=== PATIENT | male | born 1935 | race Caucasian/White ===

== ENCOUNTER 2016-09-29 13:23 | Inpatient (IN) | payer MEDICARE, OTHER ==
[~2016-09-29] VITALS: Ht 177.8 cm; Wt 113.3 kg
[~2016-09-29 13:23] MED LIST: ASPI325T4 PO; ATOR10TA PO; DUTA0.5C PO; DuoNeb INH; ESOM40CA PO; FURO20TA3 PO; LEVO500T33 PO; METO25TA35 PO; PRIM50TA PO; TADA5TAB2 PO
[2016-09-29 14:11] VITALS: BP 124/86
[2016-09-29] MEDS ORDERED: ONDANSETRON 2MG/ML, 2ML IV PRN (14:30)
[2016-09-29] MEDS ORDERED: ACETAMINOPHEN 650 MG/20.3 ML UDC PO PRN (14:30)
[2016-09-29] MEDS ORDERED: BISACODYL 5 MG EC TABLET PO PRN (14:30)
[2016-09-29] MEDS ORDERED: DIGOXIN 0.25 MG/ML, 2ML IV ONE (14:30)
[2016-09-29] MEDS: PLEASE ENTER HEIGHT AND WEIGHT MC SCH ×2 (15:00→23:00)
[2016-09-29] MEDS: METOPROLOL TARTRATE 25 MG TABLET PO SCH ×2 (15:35→22:59)
[2016-09-29 15:44] LABS: BLOOD UREA NITROGEN 14 mg/dL (7-18)
[2016-09-29] MEDS ORDERED: SODIUM CHLORIDE 0.9% 1,000 ML IV SCH (16:30)
[2016-09-29] MEDS ORDERED: OMNIPAQUE 350 MG/ML, 100ML BOTTLE ONE (17:14)
[2016-09-29] MEDS: SOTALOL 80MG TABLET PO SCH (18:16)
[2016-09-29] MEDS: ATORVASTATIN 10 MG TABLET PO SCH (20:04)
[2016-09-29] MEDS: APIXABAN 5 MG TABLET PO SCH (20:04)
[2016-09-29 20:05] VITALS: BP 114/73
[2016-09-29] MEDS: SODIUM CHLORIDE FLUSH 10ML SYR IVF SCH (20:05)
[2016-09-29] MEDS: PRIMIDONE 50 MG TABLET PO SCH (20:05)
[2016-09-29] MEDS: SULFAMETH./TRIMETHOPRIM DS 800MG/160MG TABLET PO SCH (20:05)
[2016-09-29] MEDS: ZOLPIDEM 5MG TABLET PO PRN (21:21)
[2016-09-30 02:15] VITALS: BP 110/72
[2016-09-30] MEDS: SOTALOL 80MG TABLET PO SCH ×2 (05:45→18:14)
[2016-09-30] MEDS: METOPROLOL TARTRATE 25 MG TABLET PO SCH ×3 (05:45→21:12)
[2016-09-30 05:55] LABS: BLOOD UREA NITROGEN 13 mg/dL (7-18)
[2016-09-30] MEDS: PLEASE ENTER HEIGHT AND WEIGHT MC SCH ×3 (07:00→23:00)
[2016-09-30 07:37] VITALS: BP 129/78
[2016-09-30] MEDS: PRIMIDONE 50 MG TABLET PO SCH ×2 (08:17→21:14)
[2016-09-30] MEDS: APIXABAN 5 MG TABLET PO SCH ×2 (08:18→21:14)
[2016-09-30] MEDS: OMEPRAZOLE 20 MG CAPSULE.DR PO SCH (08:18)
[2016-09-30] MEDS: SULFAMETH./TRIMETHOPRIM DS 800MG/160MG TABLET PO SCH ×2 (08:18→21:12)
[2016-09-30] MEDS: DUTASTERIDE 0.5 MG CAPSULE PO SCH (08:19)
[2016-09-30] MEDS: SODIUM CHLORIDE FLUSH 10ML SYR IVF SCH ×2 (08:19→21:15)
[2016-09-30] MEDS ORDERED: SODIUM CHLORIDE 0.9% 1,000 ML IV SCH (11:00)
[2016-09-30 15:53] VITALS: BP 110/65
[2016-09-30] MEDS ORDERED: ACETAMINOPHEN 325 MG TABLET ONE (18:28)
[2016-09-30 19:55] VITALS: BP 112/71
[2016-09-30] MEDS: ZOLPIDEM 5MG TABLET PO PRN (21:14)
[2016-09-30] MEDS: ATORVASTATIN 10 MG TABLET PO SCH (21:14)
[2016-10-01 02:44] VITALS: BP 117/62
[2016-10-01 04:29] VITALS: BP 128/78
[2016-10-01 05:28] VITALS: BP 127/73
[2016-10-01 05:32] LABS: BLOOD UREA NITROGEN 14 mg/dL (7-18)
[2016-10-01 07:41] VITALS: BP 135/77
[2016-10-01] MEDS: APIXABAN 5 MG TABLET PO SCH (09:13)
[2016-10-01] MEDS: OMEPRAZOLE 20 MG CAPSULE.DR PO SCH (09:14)
[2016-10-01] MEDS: SOTALOL 80MG TABLET PO SCH (09:14)
[2016-10-01] MEDS: DUTASTERIDE 0.5 MG CAPSULE PO SCH (09:15)
[2016-10-01] MEDS: METOPROLOL TARTRATE 25 MG TABLET PO SCH (09:15)
[2016-10-01] MEDS: SULFAMETH./TRIMETHOPRIM DS 800MG/160MG TABLET PO SCH (09:15)
[2016-10-01] MEDS: PRIMIDONE 50 MG TABLET PO SCH (09:15)
[2016-10-01] MEDS: PLEASE ENTER HEIGHT AND WEIGHT MC SCH (09:17)
[2016-10-01] MEDS: SODIUM CHLORIDE FLUSH 10ML SYR IVF SCH (09:17)
[2016-10-01 09:20] VITALS: BP 144/77
[2016-10-01] MEDS ORDERED: APIX5TAB PO (12:18)
[2016-10-01] MEDS ORDERED: SOTA80TA18 PO (12:18)
[2016-10-01] MEDS ORDERED: SULF1TAB3 PO (12:18)
== END 2016-10-01 13:05 | disposition home or self-care (01) | DRG 308 ==
LOC: 5SO 13:48
PROVIDERS: ADMIT Internal Medicine Cardiovascular Disease; ATTEND Internal Medicine Cardiovascular Disease
PROC: B246ZZ4 Ultrasonography of Right and Left Heart, Transesophageal (ICD-10-PCS; principal; 2016-09-29)
DX: I48.0 Paroxysmal atrial fibrillation (principal); I50.31 Acute diastolic (congestive) heart failure; D68.59 Other primary thrombophilia; N39.0 Urinary tract infection, site not specified; I48.92 Unspecified atrial flutter; D64.9 Anemia, unspecified; E66.9 Obesity, unspecified; E78.5 Hyperlipidemia, unspecified; E87.5 Hyperkalemia; I25.10 Atherosclerotic heart disease of native coronary artery without angina pectoris; I27.2 Other secondary pulmonary hypertension; J44.9 Chronic obstructive pulmonary disease, unspecified; K21.9 Gastro-esophageal reflux disease without esophagitis; N40.0 Benign prostatic hyperplasia without lower urinary tract symptoms; Z79.899 Other long term (current) drug therapy; Z87.891 Personal history of nicotine dependence; Z95.1 Presence of aortocoronary bypass graft; Z95.2 Presence of prosthetic heart valve; Z68.35 Body mass index [BMI] 35.0-35.9, adult; I11.0 Hypertensive heart disease with heart failure
CPT/HCPCS: 36415; 71020; 71275; 80048; 83735; 84439; 84443; 85014; 85018; 93005; 93306; 93312; Q9967; J1160; J7030

== ENCOUNTER 2016-11-24 23:19 | Emergency (ER) | payer MEDICARE, OTHER ==
[~2016-11-24 23:19] MED LIST changes: +APIX5TAB PO; +SOTA80TA18 PO; +SULF1TAB3 PO
[2016-11-25 00:09] LABS: HEMATOCRIT 45.3 % (39.2-51.8); HEMOGLOBIN 15.2 g/dL (13.7-18.0); WHITE BLOOD COUNT 9.1 x10^3/uL (3.4-10)
[2016-11-25 00:21] LABS: ASPARTATE AMINO TRANSFERASE 21 U/L (15-37); BLOOD UREA NITROGEN 15 mg/dL (7-18)
[2016-11-25 00:35] LABS: IS PT STATUS REG ER OR PRE ER? YES
[2016-11-25 01:18] VITALS: BP 124/65
== END 2016-11-25 01:21 | disposition home or self-care (01) ==
LOC: ED 23:59
DX: I48.2 Chronic atrial fibrillation (principal)
CPT/HCPCS: 36415; 71020; 80053; 83735; 83880; 84439; 84443; 84484; 85025; 85610; 85730; 93005; 99285

== ENCOUNTER → 2017-07-08 | Outpatient (CLI) | payer MEDICARE, OTHER ==
[~2017-07-08] MED LIST changes: +ASPI325T17 PO; -ASPI325T4 PO; -LEVO500T33 PO; +LEVO500T47 PO; +OMNIPAQUE 350 MG/ML, 100ML BOTTLE ONE; +SULF-169 PO; -SULF1TAB3 PO
== END | disposition home or self-care (01) ==
LOC: CFH 12:32
PROVIDERS: ATTEND Internal Medicine Cardiovascular Disease
DX: J32.0 Chronic maxillary sinusitis (principal); J32.2 Chronic ethmoidal sinusitis
CPT/HCPCS: 70470; Q9967

== ENCOUNTER 2017-08-27 12:34 | Emergency (ER) | payer MEDICARE, OTHER ==
[~2017-08-27 12:34] MED LIST changes: -OMNIPAQUE 350 MG/ML, 100ML BOTTLE ONE
[2017-08-27] MEDS ORDERED: CIPR500T87 PO (12:55)
[2017-08-27] MEDS ORDERED: TERA2CAP3 PO (12:55)
[2017-08-27] MEDS ORDERED: METR500T PO (12:55)
[2017-08-27] MEDS ORDERED: SODIUM CHLORIDE FLUSH 10ML SYR IVF ONE (13:00)
[2017-08-27 13:08] LABS: MEAN CORPUSCULAR HEMOGLOBIN 32.3 pg (27.5-34.5); MEAN CORPUSCULAR HGB CONC 33.9 g/dL (33.2-36.2); MEAN CORPUSCULAR VOLUME 95.3 fL (81-97); MEAN PLATELET VOLUME 7.4 fL (7.4-10.4); PLATELET COUNT 288 x10^3/uL (130-400); RED BLOOD COUNT 4.63 x10^6/uL (4.38-5.82); RED CELL DISTRIBUTION WIDTH 13.5 % (9.4-14.8)
[2017-08-27 13:16] LABS: INTERNATIONAL NORMALIZED RATIO 1.18 (0.93-1.1); PROTHROMBIN TIME 12.2 Seconds (9.6-11.5)
[2017-08-27 13:20] LABS: ALANINE AMINOTRANSFERASE 28 U/L (12-78); ANION GAP 8 mmol/L (5-15); CALCIUM 8.9 mg/dL (8.5-10.1); CHLORIDE 107 mmol/L (98-107); CREATININE 1.28 mg/dL (0.7-1.3)
[2017-08-27 13:22] LABS: ALKALINE PHOSPHATASE 56 U/L (45-117); BILIRUBIN,TOTAL 0.6 mg/dL (0.2-1.0); TOTAL PROTEIN 6.8 g/dL (6.4-8.2)
[2017-08-27 13:26] LABS: BASOPHILS # (AUTO) 0.02 x10^3/uL (0-0.1); BASOPHILS % (AUTO) 0 % (0-1); EOSINOPHILS # (AUTO) 0.15 x10^3/uL (0-0.4); EOSINOPHILS % (AUTO) 1 % (1-7); LYMPHOCYTES # (AUTO) 1.54 x10^3/uL (1-3.4); LYMPHOCYTES % (AUTO) 14 % (22-44); MD SCAN; MONOCYTES # (AUTO) 1.62 x10^3/uL (0.2-0.8); MONOCYTES % (AUTO) 15 % (2-9); NEUTROPHILS # (AUTO) 7.78 x10^3/uL (1.8-6.8); NEUTROPHILS % (AUTO) 70 % (42-75)
[2017-08-27] MEDS ORDERED: OMNIPAQUE 350 MG/ML, 100ML BOTTLE ONE (14:12)
[2017-08-27] MEDS ORDERED: CIPROFLOXACIN/PMX 400MG/200ML 200 ML ONE (14:45)
[2017-08-27] MEDS ORDERED: METRONIDAZOLE PMX 500MG/100ML 100 ML ONE (14:45)
[2017-08-27 14:57] LABS: MICROSCOPIC NOT IND
[2017-08-27 14:58] VITALS: BP 119/53
[2017-08-27] MEDS ORDERED: CIPROFLOXACIN/PMX 400MG/200ML 100 ML IVPB ONE (15:00)
[2017-08-27] MEDS ORDERED: METRONIDAZOLE PMX 500MG/100ML 100 ML IVPB ONE (15:00)
[2017-08-27 15:01] LABS: CULTURE INDICATED? NO
== END 2017-08-27 17:33 | disposition home or self-care (01) ==
LOC: ED 13:21
DX: K57.32 Diverticulitis of large intestine without perforation or abscess without bleeding (principal); I48.91 Unspecified atrial fibrillation; I49.9 Cardiac arrhythmia, unspecified; Z79.01 Long term (current) use of anticoagulants
CPT/HCPCS: 36415; 74177; 80053; 81003; 83690; 85025; 85610; 85730; 96365; 96367; 99285; J0744; Q9967

== ENCOUNTER → 2018-04-05 | Outpatient (CLI) | payer MEDICARE, OTHER ==
[~2018-04-05] MED LIST changes: +CIPR500T87 PO; +METR500T PO; +OMNIPAQUE 350 MG/ML, 100ML BOTTLE ONE; +TERA2CAP3 PO
== END | disposition home or self-care (01) ==
LOC: CFH 11:39
PROVIDERS: ATTEND Internal Medicine Gastroenterology
DX: K57.30 Diverticulosis of large intestine without perforation or abscess without bleeding (principal); N28.1 Cyst of kidney, acquired
CPT/HCPCS: 74177; Q9967

== ENCOUNTER 2018-04-20 12:30 | Outpatient (CLI) | payer MEDICARE, OTHER ==
[~2018-04-20 12:30] MED LIST changes: -OMNIPAQUE 350 MG/ML, 100ML BOTTLE ONE; +REGADENOSON 0.4 MG/5 ML SYRINGE ONE
== END 2018-04-20 23:59 | disposition home or self-care (01) ==
LOC: CFH 12:30
PROVIDERS: ATTEND Internal Medicine Cardiovascular Disease
DX: R06.02 Shortness of breath (principal); R42 Dizziness and giddiness; R07.9 Chest pain, unspecified
CPT/HCPCS: 78452; 93017; A9502; J2785

== ENCOUNTER 2018-05-25 11:44 | Inpatient (IN) | payer MEDICARE, OTHER ==
[~2018-05-25] VITALS: Ht 177.8 cm; Wt 103.3 kg
[~2018-05-25 11:44] MED LIST changes: +MONT10TA6 PO; -REGADENOSON 0.4 MG/5 ML SYRINGE ONE
[2018-05-25] MEDS ORDERED: SODIUM CHLORIDE FLUSH 10ML SYR IVF ONE (12:30)
[2018-05-25 12:33] LABS: MEAN CORPUSCULAR HEMOGLOBIN 32.2 pg (27.5-34.5); MEAN CORPUSCULAR HGB CONC 34.3 g/dL (33.2-36.2); MEAN PLATELET VOLUME 6.5 fL (7.4-10.4); PLATELET COUNT 252 x10^3/uL (130-400); RED BLOOD COUNT 4.47 x10^6/uL (4.38-5.82); RED CELL DISTRIBUTION WIDTH 13.1 % (9.4-14.8)
[2018-05-25 12:47] LABS: ALANINE AMINOTRANSFERASE 18 U/L (12-78); ANION GAP 6 mmol/L (5-15); CALCIUM 8.5 mg/dL (8.5-10.1); CHLORIDE 109 mmol/L (98-107); CREATININE 1.28 mg/dL (0.7-1.3)
[2018-05-25 12:51] LABS: ALKALINE PHOSPHATASE 49 U/L (45-117); TOTAL PROTEIN 6.4 g/dL (6.4-8.2); TROPONIN I 0.022 ng/mL (0.000-0.045)
[2018-05-25] MEDS ORDERED: ALBUTEROL/IPRATROPIUM 2.5MG/0.5MG, 3 ML NPPB ONE (13:00)
--- NOTE | 2018-05-25 13:02 | NUR ---
ever (rn) is assuming careof this pt at this time. sbar report was exchanged at the bedside.
--- NOTE | 2018-05-25 13:08 | NUR ---
PT REPORT FROM AMILCAR BONDS. PT CARE TO BE ASSUMED.
[2018-05-25 13:35] LABS: MD YES
[2018-05-25 13:37] LABS: BAND#(MANUAL) 3.06 x10^3/uL; BANDS%(MANUAL) 23 % (0-7); LYMPH#(MANUAL) 0.13 x10^3/uL (1-3.4); LYMPHS% (MANUAL) 1 % (22-44); MONOS#(MANUAL) 0.53 x10^3/uL (0.3-2.7); MONOS% (MANUAL) 4 % (2-9); SEG#(MANUAL) 9.58 x10^3/uL (1.8-6.8); SEGS% (MANUAL) 72 % (42-75)
[2018-05-25 13:38] LABS: <PLATELET ESTIMATE> ADEQUATE; <PLT MORPHOLOGY> NORMAL PLT MORPH; <RBC MORPHOLOGY> NORMAL
[2018-05-25] MEDS ORDERED: ALBUTEROL/IPRATROPIUM 2.5MG/0.5MG, 3 ML ONE (13:43)
--- NOTE | 2018-05-25 13:52 | NUR ---
RT BS; NEB TX STARTED.
[2018-05-25] MEDS ORDERED: PIPERACILLIN/TAZO/PMX 3.375GM 50 ML ONE (13:59)
[2018-05-25] MEDS ORDERED: PIPERACILLIN/TAZO/PMX 3.375GM 50 ML IVPB ONE (14:00)
[2018-05-25] MEDS ORDERED: VANCOMYCIN PER PHARMACY IV ONE (14:00)
--- NOTE | 2018-05-25 14:23 | NUR ---
2ND SET OF BLD CX OBTAINED FROM LT HAND; WILL BE SENT TO LAB. BLD CX BAND PLACED. ZOSYN TO BE STARTED PER EMAR.
[2018-05-25] MEDS ORDERED: VANCOMYCIN 1,500 MG in SODIUM CHLORIDE 0.9% 250 ML IV ONE (14:30)
--- NOTE | 2018-05-25 15:51 | NUR ---
PT REPORT TO AMILCAR MCDONALD FOR ROOM 342
[2018-05-25] MEDS ORDERED: VANCOMYCIN PER PHARMACY MC PRN (16:00)
[2018-05-25] MEDS ORDERED: PHARMACOKINETIC MONITORING MC PRN (17:00)
[2018-05-25] MEDS: SOTALOL 80MG TABLET PO SCH (17:30)
[2018-05-25] MEDS: SODIUM CHLORIDE 0.9% 1,000 ML IV SCH (17:58)
[2018-05-25] MEDS ORDERED: SOTALOL HCL 80 MG PO SCH (18:00)
[2018-05-25] MEDS ORDERED: OMNIPAQUE 350 MG/ML, 100ML BOTTLE ONE (18:34)
[2018-05-25] MEDS: PRIMIDONE 50 MG TABLET PO SCH (19:34)
[2018-05-25] MEDS: APIXABAN 5 MG TABLET PO SCH (19:34)
[2018-05-25] MEDS: MELATONIN 5 MG TABLET PO SCH (19:38)
[2018-05-25 19:44] VITALS: BP_SYST 148; BP_SYST 91; BP_DIAS 49; BP_DIAS 74
[2018-05-25 20:11] LABS: MICROSCOPIC AUTO
[2018-05-25 20:13] LABS: CULTURE INDICATED? YES
[2018-05-25] MEDS: PIPERACILLIN/TAZO/PMX 3.375GM 50 ML IV SCH (20:30)
[2018-05-25] MEDS ORDERED: ATORVASTATIN CALCIUM 10 MG PO SCH (21:00)
[2018-05-26] MEDS ORDERED: ALBUTEROL SULFATE 2.5 MG/3 ML NPPB PRN (00:30)
[2018-05-26] MEDS ORDERED: ALBUTEROL SULFATE 2.5 MG/3 ML ONE (00:31)
[2018-05-26 00:52] VITALS: BP 91/42
[2018-05-26] MEDS ORDERED: ALBU6.7H INH (01:41)
[2018-05-26] MEDS: SODIUM CHLORIDE 0.9% 1,000 ML IV SCH ×2 (02:25→11:00)
[2018-05-26] MEDS: PIPERACILLIN/TAZO/PMX 3.375GM 50 ML IV SCH ×2 (02:25→07:41)
[2018-05-26] MEDS: SOTALOL 80MG TABLET PO SCH ×2 (06:01→18:08)
[2018-05-26 06:03] VITALS: BP 99/54
[2018-05-26 06:37] VITALS: BP 95/54
[2018-05-26] MEDS ORDERED: METRONIDAZOLE PMX 500MG/100ML 100 ML IV SCH (07:00)
[2018-05-26 07:21] LABS: MEAN CORPUSCULAR HEMOGLOBIN 31.5 pg (27.5-34.5); MEAN CORPUSCULAR HGB CONC 32.9 g/dL (33.2-36.2); MEAN CORPUSCULAR VOLUME 95.8 fL (81-97); MEAN PLATELET VOLUME 7.1 fL (7.4-10.4); PLATELET COUNT 226 x10^3/uL (130-400); RED BLOOD COUNT 3.81 x10^6/uL (4.38-5.82); RED CELL DISTRIBUTION WIDTH 13.1 % (9.4-14.8)
[2018-05-26 07:24] LABS: ALBUMIN 2.5 g/dL (3.4-5.0); ANION GAP 7 mmol/L (5-15); CALCIUM 8.2 mg/dL (8.5-10.1); CHLORIDE 109 mmol/L (98-107)
[2018-05-26 07:27] LABS: ALANINE AMINOTRANSFERASE 15 U/L (12-78); ALKALINE PHOSPHATASE 36 U/L (45-117); BILIRUBIN,TOTAL 0.8 mg/dL (0.2-1.0); CREATININE 1.41 mg/dL (0.7-1.3); TOTAL PROTEIN 5.5 g/dL (6.4-8.2)
[2018-05-26 07:41] LABS: MD YES
[2018-05-26] MEDS: APIXABAN 5 MG TABLET PO SCH ×2 (07:41→20:56)
[2018-05-26] MEDS: PRIMIDONE 50 MG TABLET PO SCH ×2 (07:41→20:56)
[2018-05-26 07:42] LABS: BAND#(MANUAL) 0.95 x10^3/uL; BANDS%(MANUAL) 5 % (0-7); EOS#(MANUAL) 0.19 x10^3/uL (0.0-0.4); EOS% (MANUAL) 1 % (1-7); LYMPH#(MANUAL) 0.95 x10^3/uL (1-3.4); LYMPHS% (MANUAL) 5 % (22-44); MONOS#(MANUAL) 0.19 x10^3/uL (0.3-2.7); MONOS% (MANUAL) 1 % (2-9); SEG#(MANUAL) 16.63 x10^3/uL (1.8-6.8); SEGS% (MANUAL) 88 % (42-75)
[2018-05-26] MEDS: MONTELUKAST 10 MG TABLET PO SCH (07:42)
[2018-05-26 07:43] LABS: <PLATELET ESTIMATE> ADEQUATE; <PLT MORPHOLOGY> NORMAL PLT MORPH; POLYCHROMASIA 1+
[2018-05-26 12:50] VITALS: BP 110/64
[2018-05-26] MEDS ORDERED: VANCOMYCIN PER PHARMACY MC PRN (13:30)
[2018-05-26] MEDS: METRONIDAZOLE PMX 500MG/100ML 100 ML IV SCH ×2 (14:42→22:22)
[2018-05-26] MEDS: CIPROFLOXACIN/PMX 400MG/200ML 200 ML IV SCH (16:18)
[2018-05-26 16:30] VITALS: BP 103/59
[2018-05-26] MEDS: LORazepam 0.5MG TABLET PO PRN (16:57)
[2018-05-26] MEDS ORDERED: TAMSULOSIN 0.4 MG CAP.ER.24H PO SCH (18:00)
[2018-05-26] MEDS: MELATONIN 5 MG TABLET PO SCH (18:07)
[2018-05-26 19:15] VITALS: BP 124/65
[2018-05-26] MEDS: DUTASTERIDE 0.5 MG CAPSULE PO SCH (20:56)
[2018-05-26] MEDS: TERAZOSIN 2MG CAPSULE PO SCH (20:56)
[2018-05-27 01:27] VITALS: BP 97/57
[2018-05-27] MEDS ORDERED: VANCOMYCIN 1,500 MG in SODIUM CHLORIDE 0.9% 250 ML IV SCH (03:00)
[2018-05-27 03:46] VITALS: BP 100/57
[2018-05-27] MEDS: CIPROFLOXACIN/PMX 400MG/200ML 200 ML IV SCH (03:46)
[2018-05-27 04:44] LABS: ALBUMIN 2.4 g/dL (3.4-5.0); ANION GAP 6 mmol/L (5-15); CALCIUM 7.8 mg/dL (8.5-10.1); CHLORIDE 113 mmol/L (98-107)
[2018-05-27 04:48] LABS: ALANINE AMINOTRANSFERASE 13 U/L (12-78); ALKALINE PHOSPHATASE 34 U/L (45-117); BILIRUBIN,TOTAL 0.8 mg/dL (0.2-1.0); CREATININE 1.17 mg/dL (0.7-1.3); TOTAL PROTEIN 5.5 g/dL (6.4-8.2)
[2018-05-27 04:54] LABS: MEAN CORPUSCULAR HGB CONC 33.2 g/dL (33.2-36.2); MEAN CORPUSCULAR VOLUME 96.5 fL (81-97); MEAN PLATELET VOLUME 7.3 fL (7.4-10.4); PLATELET COUNT 210 x10^3/uL (130-400); RED BLOOD COUNT 3.68 x10^6/uL (4.38-5.82); RED CELL DISTRIBUTION WIDTH 13.3 % (9.4-14.8)
[2018-05-27 05:43] LABS: MD YES
[2018-05-27 05:46] LABS: BAND#(MANUAL) 0.43 x10^3/uL; BANDS%(MANUAL) 3 % (0-7); LYMPHS% (MANUAL) 7 % (22-44); MONOS#(MANUAL) 0.43 x10^3/uL (0.3-2.7); MONOS% (MANUAL) 3 % (2-9); SEG#(MANUAL) 12.44 x10^3/uL (1.8-6.8); SEGS% (MANUAL) 87 % (42-75)
[2018-05-27 05:54] LABS: ANISOCYTOSIS 1+
[2018-05-27 05:55] LABS: <PLATELET ESTIMATE> ADEQUATE; <PLT MORPHOLOGY> NORMAL PLT MORPH
[2018-05-27] MEDS: SOTALOL 80MG TABLET PO SCH ×2 (06:03→16:52)
[2018-05-27] MEDS: METRONIDAZOLE PMX 500MG/100ML 100 ML IV SCH ×3 (06:07→21:52)
[2018-05-27 07:08] VITALS: BP 104/55
[2018-05-27] MEDS: APIXABAN 5 MG TABLET PO SCH ×2 (07:52→20:18)
[2018-05-27] MEDS: PRIMIDONE 50 MG TABLET PO SCH ×2 (07:52→20:18)
[2018-05-27] MEDS: MONTELUKAST 10 MG TABLET PO SCH (07:53)
[2018-05-27] MEDS: DUTASTERIDE 0.5 MG CAPSULE PO SCH (07:53)
[2018-05-27 13:06] VITALS: BP 128/60
[2018-05-27] MEDS ORDERED: METR500T PO (14:54)
[2018-05-27] MEDS ORDERED: CEFD300C37 PO (14:54)
[2018-05-27] MEDS ORDERED: SOTA80TA18 PO (14:55)
[2018-05-27] MEDS ORDERED: CEFTRIAXONE PMX 1GM/50ML 50 ML IV SCH (15:00)
[2018-05-27] MEDS ORDERED: CEFTRIAXONE PMX 2GM/50ML 50 ML IV SCH (15:30)
[2018-05-27] MEDS ORDERED: MORPHINE SULFATE 4 MG/ML, 1ML IVPush PRN (15:30)
[2018-05-27] MEDS ORDERED: ACETAMINOPHEN 325 MG TABLET PO PRN (15:30)
[2018-05-27 19:21] VITALS: BP 111/74
[2018-05-27] MEDS: MELATONIN 5 MG TABLET PO SCH (20:18)
[2018-05-27] MEDS: TERAZOSIN 2MG CAPSULE PO SCH (20:18)
[2018-05-28] MEDS: LORazepam 0.5MG TABLET PO PRN ×2 (00:14→19:45)
[2018-05-28 01:25] VITALS: BP 101/66
[2018-05-28 04:41] LABS: MEAN CORPUSCULAR HEMOGLOBIN 32.5 pg (27.5-34.5); MEAN CORPUSCULAR HGB CONC 33.1 g/dL (33.2-36.2); MEAN CORPUSCULAR VOLUME 98.3 fL (81-97); MEAN PLATELET VOLUME 7.4 fL (7.4-10.4); PLATELET COUNT 200 x10^3/uL (130-400); RED BLOOD COUNT 3.75 x10^6/uL (4.38-5.82); RED CELL DISTRIBUTION WIDTH 13.1 % (9.4-14.8)
[2018-05-28 04:58] LABS: ALBUMIN 2.2 g/dL (3.4-5.0); ANION GAP 4 mmol/L (5-15); CALCIUM 7.8 mg/dL (8.5-10.1); CHLORIDE 112 mmol/L (98-107)
[2018-05-28 05:15] LABS: ALANINE AMINOTRANSFERASE 14 U/L (12-78); ALKALINE PHOSPHATASE 38 U/L (45-117); BILIRUBIN,TOTAL 0.6 mg/dL (0.2-1.0); CREATININE 0.98 mg/dL (0.7-1.3); TOTAL PROTEIN 5.7 g/dL (6.4-8.2)
[2018-05-28 05:37] LABS: BASOPHILS # (AUTO) 0.02 x10^3/uL (0-0.1); BASOPHILS % (AUTO) 0 % (0-1); EOSINOPHILS # (AUTO) 0.12 x10^3/uL (0-0.4); EOSINOPHILS % (AUTO) 1 % (1-7); LYMPHOCYTES # (AUTO) 1.08 x10^3/uL (1-3.4); LYMPHOCYTES % (AUTO) 10 % (22-44); MD SCAN; MONOCYTES # (AUTO) 1.22 x10^3/uL (0.2-0.8); MONOCYTES % (AUTO) 11 % (2-9); NEUTROPHILS # (AUTO) 8.46 x10^3/uL (1.8-6.8); NEUTROPHILS % (AUTO) 78 % (42-75)
[2018-05-28] MEDS: METRONIDAZOLE PMX 500MG/100ML 100 ML IV SCH ×3 (05:47→20:58)
[2018-05-28] MEDS: SOTALOL 80MG TABLET PO SCH ×2 (05:50→17:38)
[2018-05-28 07:32] VITALS: BP 107/62
[2018-05-28] MEDS: DUTASTERIDE 0.5 MG CAPSULE PO SCH (08:03)
[2018-05-28] MEDS: PRIMIDONE 50 MG TABLET PO SCH ×2 (08:03→19:45)
[2018-05-28] MEDS: MONTELUKAST 10 MG TABLET PO SCH (08:04)
[2018-05-28] MEDS: APIXABAN 5 MG TABLET PO SCH ×2 (08:04→19:45)
[2018-05-28] MEDS ORDERED: CEFTRIAXONE PMX 2GM/50ML 50 ML IV SCH (11:00)
[2018-05-28 13:11] VITALS: BP 100/65
[2018-05-28] MEDS: MELATONIN 5 MG TABLET PO SCH (17:43)
[2018-05-28 19:28] VITALS: BP 125/76
[2018-05-28] MEDS: TERAZOSIN 2MG CAPSULE PO SCH (19:45)
[2018-05-29 02:49] VITALS: BP 113/63
[2018-05-29 04:39] LABS: BASOPHILS # (AUTO) 0.04 x10^3/uL (0-0.1); BASOPHILS % (AUTO) 0 % (0-1); EOSINOPHILS # (AUTO) 0.19 x10^3/uL (0-0.4); EOSINOPHILS % (AUTO) 2 % (1-7); LYMPHOCYTES # (AUTO) 1.35 x10^3/uL (1-3.4); LYMPHOCYTES % (AUTO) 13 % (22-44); MD NO; MEAN CORPUSCULAR HEMOGLOBIN 32.5 pg (27.5-34.5); MEAN CORPUSCULAR HGB CONC 33.8 g/dL (33.2-36.2); MEAN CORPUSCULAR VOLUME 95.9 fL (81-97); MEAN PLATELET VOLUME 7.8 fL (7.4-10.4); MONOCYTES # (AUTO) 1.11 x10^3/uL (0.2-0.8); MONOCYTES % (AUTO) 11 % (2-9); NEUTROPHILS # (AUTO) 7.69 x10^3/uL (1.8-6.8); NEUTROPHILS % (AUTO) 74 % (42-75); PLATELET COUNT 222 x10^3/uL (130-400); RED BLOOD COUNT 3.87 x10^6/uL (4.38-5.82); RED CELL DISTRIBUTION WIDTH 12.9 % (9.4-14.8)
[2018-05-29] MEDS: METRONIDAZOLE PMX 500MG/100ML 100 ML IV SCH (05:05)
[2018-05-29] MEDS: SOTALOL 80MG TABLET PO SCH (05:05)
[2018-05-29 05:07] LABS: ALANINE AMINOTRANSFERASE 18 U/L (12-78); ALBUMIN 2.2 g/dL (3.4-5.0); ANION GAP 5 mmol/L (5-15); CALCIUM 7.9 mg/dL (8.5-10.1); CHLORIDE 110 mmol/L (98-107); CREATININE 0.89 mg/dL (0.7-1.3)
[2018-05-29 05:09] LABS: ALKALINE PHOSPHATASE 98 U/L (45-117); BILIRUBIN,TOTAL 0.5 mg/dL (0.2-1.0); TOTAL PROTEIN 5.7 g/dL (6.4-8.2)
[2018-05-29 07:50] VITALS: BP 110/75
[2018-05-29] MEDS: DUTASTERIDE 0.5 MG CAPSULE PO SCH (09:40)
[2018-05-29] MEDS: MONTELUKAST 10 MG TABLET PO SCH (09:40)
[2018-05-29] MEDS: PRIMIDONE 50 MG TABLET PO SCH (09:40)
[2018-05-29] MEDS: APIXABAN 5 MG TABLET PO SCH (09:40)
== END 2018-05-29 11:58 | disposition home or self-care (01) | DRG 871 ==
LOC: ED 12:35 → 3NW 15:55
PROVIDERS: ADMIT Hospitalist; ATTEND Hospitalist
DX: A41.9 Sepsis, unspecified organism (principal); J96.01 Acute respiratory failure with hypoxia; D68.69 Other thrombophilia; N39.0 Urinary tract infection, site not specified; K57.92 Diverticulitis of intestine, part unspecified, without perforation or abscess without bleeding; B96.20 Unspecified Escherichia coli [E. coli] as the cause of diseases classified elsewhere; I25.10 Atherosclerotic heart disease of native coronary artery without angina pectoris; Z95.1 Presence of aortocoronary bypass graft; E78.5 Hyperlipidemia, unspecified; I10 Essential (primary) hypertension; I48.0 Paroxysmal atrial fibrillation; R25.1 Tremor, unspecified; J45.909 Unspecified asthma, uncomplicated; Z95.2 Presence of prosthetic heart valve
CPT/HCPCS: 36415; 71045; 71260; 72125; 74177; 80053; 81001; 83605; 83735; 83880; 84100; 84145; 84484; 85025; 87040; 87077; 87086; 87186; 87205; 93005; 93880; 94640; 96365; 96367; G0378; J0696; J0744; J2543; J3370; J7613; J7620; Q9967; J7030; J7050

== ENCOUNTER 2018-06-05 12:08 | Outpatient (CLI) | payer MEDICARE, OTHER ==
[~2018-06-05 12:08] MED LIST changes: +ALBU6.7H INH; +CEFD300C37 PO
[2018-06-05 12:40] LABS: BASOPHILS # (AUTO) 0.02 x10^3/uL (0-0.1); BASOPHILS % (AUTO) 0 % (0-1); EOSINOPHILS % (AUTO) 3 % (1-7); LYMPHOCYTES # (AUTO) 1.19 x10^3/uL (1-3.4); LYMPHOCYTES % (AUTO) 15 % (22-44); MD NO; MEAN CORPUSCULAR HEMOGLOBIN 31.8 pg (27.5-34.5); MEAN CORPUSCULAR HGB CONC 33.5 g/dL (33.2-36.2); MEAN PLATELET VOLUME 6.8 fL (7.4-10.4); MONOCYTES % (AUTO) 10 % (2-9); NEUTROPHILS # (AUTO) 5.65 x10^3/uL (1.8-6.8); NEUTROPHILS % (AUTO) 72 % (42-75); PLATELET COUNT 328 x10^3/uL (130-400); RED BLOOD COUNT 4.37 x10^6/uL (4.38-5.82); RED CELL DISTRIBUTION WIDTH 13.6 % (9.4-14.8)
[2018-06-05 12:47] LABS: ALANINE AMINOTRANSFERASE 14 U/L (12-78); ANION GAP 4 mmol/L (5-15); CALCIUM 8.4 mg/dL (8.5-10.1); CHLORIDE 107 mmol/L (98-107)
[2018-06-05 12:52] LABS: ALKALINE PHOSPHATASE 47 U/L (45-117); BILIRUBIN,TOTAL 0.6 mg/dL (0.2-1.0); CREATININE 0.97 mg/dL (0.7-1.3); PSA SCREEN 2.63 ng/mL (0.00-4.00); TOTAL PROTEIN 6.7 g/dL (6.4-8.2)
[2018-06-05 12:58] LABS: CULTURE INDICATED? YES; MICROSCOPIC INDICATED
== END 2018-06-05 23:59 | disposition home or self-care (01) ==
LOC: RAD 12:08
PROVIDERS: ATTEND Internal Medicine
DX: I12.9 Hypertensive chronic kidney disease with stage 1 through stage 4 chronic kidney disease, or unspecified chronic kidney disease (principal); N18.9 Chronic kidney disease, unspecified; N40.0 Benign prostatic hyperplasia without lower urinary tract symptoms; K21.9 Gastro-esophageal reflux disease without esophagitis; J44.1 Chronic obstructive pulmonary disease with (acute) exacerbation; E78.5 Hyperlipidemia, unspecified; I25.10 Atherosclerotic heart disease of native coronary artery without angina pectoris
CPT/HCPCS: 36415; 71046; 80053; 81001; 82533; 84153; 85025; 87086; 87106; G0103

== ENCOUNTER 2018-06-16 11:58 | Inpatient (IN) | payer MEDICARE, OTHER ==
[~2018-06-16] VITALS: Ht 177.8 cm; Wt 94.9 kg
--- NOTE | 2018-06-16 13:15 | NUR ---
TO ROOM FROM LOBBY. NAD.
[2018-06-16 13:27] LABS: HCT (SEDRATE) 43.8 % (39.2-51.8)
[2018-06-16 13:28] LABS: BASOPHILS # (AUTO) 0.04 x10^3/uL (0-0.1); BASOPHILS % (AUTO) 0 % (0-1); EOSINOPHILS % (AUTO) 1 % (1-7); LYMPHOCYTES # (AUTO) 1.38 x10^3/uL (1-3.4); LYMPHOCYTES % (AUTO) 12 % (22-44); MD NO; MEAN CORPUSCULAR HEMOGLOBIN 31.9 pg (27.5-34.5); MEAN CORPUSCULAR HGB CONC 33.9 g/dL (33.2-36.2); MEAN CORPUSCULAR VOLUME 94.1 fL (81-97); MEAN PLATELET VOLUME 7.8 fL (7.4-10.4); MONOCYTES # (AUTO) 1.31 x10^3/uL (0.2-0.8); MONOCYTES % (AUTO) 11 % (2-9); NEUTROPHILS % (AUTO) 76 % (42-75); PLATELET COUNT 316 x10^3/uL (130-400); RED BLOOD COUNT 4.62 x10^6/uL (4.38-5.82); RED CELL DISTRIBUTION WIDTH 14.1 % (9.4-14.8)
[2018-06-16 13:38] LABS: ALANINE AMINOTRANSFERASE 19 U/L (12-78); ALBUMIN 3.2 g/dL (3.4-5.0); ANION GAP 4 mmol/L (5-15); CHLORIDE 108 mmol/L (98-107); CREATININE 1.25 mg/dL (0.7-1.3)
[2018-06-16 13:41] LABS: ALKALINE PHOSPHATASE 52 U/L (45-117); BILIRUBIN,TOTAL 0.7 mg/dL (0.2-1.0); TOTAL PROTEIN 7.2 g/dL (6.4-8.2)
--- NOTE | 2018-06-16 13:46 | NUR ---
FIRST CONTACT WITH PT. PT IN NAD, RESTING QUIETLY WITH FAMILY AT BS. PT AND FAMILY UPDATED ON POC. URINE CUP AT BS. AUDIT MACHINE OPERATOR IN TO START IV FOR CT. CALL LIGHT WITHIN REACH.
--- NOTE | 2018-06-16 13:59 | NUR ---
URINE COLLECTED/SENT TO LAB. IV ESTABLISHED/SL. AWAITING LAB RESULTS AND CT. CALL LIGHT WITHIN REACH.
--- NOTE | 2018-06-16 14:18 | NUR ---
PT TO CT.
[2018-06-16 14:37] LABS: CULTURE INDICATED? NO; MICROSCOPIC NOT IND
[2018-06-16] MEDS ORDERED: OMNIPAQUE 350 MG/ML, 100ML BOTTLE ONE (14:39)
--- NOTE | 2018-06-16 15:02 | NUR ---
ALL RESULTS BACK, PT FOR RECHECK.
[2018-06-16] MEDS ORDERED: METRONIDAZOLE PMX 500MG/100ML 100 ML IV ONE (15:30)
[2018-06-16] MEDS ORDERED: CEFOTETAN PMX 1GM/50ML 50 ML IV ONE (15:30)
--- NOTE | 2018-06-16 15:42 | NUR ---
VSS/UPDATED IN COMPUTER. MED REC COMPLETED. PT AND FAMILY UPDATED ON POC.
[2018-06-16] MEDS ORDERED: METRONIDAZOLE PMX 500MG/100ML 100 ML ONE (15:44)
[2018-06-16] MEDS ORDERED: CEFOTETAN PMX 1GM/50ML 50 ML ONE (15:44)
--- NOTE | 2018-06-16 15:56 | NUR ---
ANTIBIOTIC INFUSING, [facility] IN TO SEE PT.
[2018-06-16] MEDS ORDERED: ONDANSETRON 2MG/ML, 2ML ONE (16:26)
[2018-06-16] MEDS ORDERED: MORPHINE SULFATE 4 MG/ML, 1ML ONE (16:26)
[2018-06-16] MEDS ORDERED: HYDROcodone/APAP 5/325 TABLET PO PRN (16:30)
[2018-06-16] MEDS ORDERED: BISACODYL 10 MG SUPP PR PRN (16:30)
[2018-06-16] MEDS ORDERED: ACETAMINOPHEN 325 MG TABLET PO PRN (16:30)
[2018-06-16] MEDS ORDERED: POLYETHYLENE GLYCOL 17 GM PACKET PO PRN (16:30)
[2018-06-16] MEDS ORDERED: ONDANSETRON 2MG/ML, 2ML IVPush PRN (16:30)
[2018-06-16] MEDS ORDERED: ONDANSETRON ODT 4 MG PO PRN (16:30)
[2018-06-16] MEDS ORDERED: ENALAPRILAT 1.25 MG/ML, 2ML IVPush PRN (16:30)
[2018-06-16] MEDS: morphine SULFATE 10 MG/ML, 1ML IVPush PRN ×3 (16:32→23:19)
[2018-06-16] MEDS: SODIUM CHLORIDE 0.9% 1,000 ML IV SCH (17:07)
[2018-06-16 21:17] VITALS: BP 99/65
[2018-06-16] MEDS: APIXABAN 5 MG TABLET PO SCH (21:43)
[2018-06-16] MEDS: PIPERACILLIN/TAZO/PMX 4.5GM 100 ML IV SCH (21:43)
[2018-06-16] MEDS: MELATONIN 5 MG TABLET PO PRN (21:43)
[2018-06-16] MEDS: SOTALOL 80MG TABLET PO SCH (21:44)
[2018-06-17] MEDS: SODIUM CHLORIDE 0.9% 1,000 ML IV SCH ×3 (00:43→22:05)
[2018-06-17 03:58] VITALS: BP 113/72
[2018-06-17] MEDS: PIPERACILLIN/TAZO/PMX 4.5GM 100 ML IV SCH ×4 (04:03→22:04)
[2018-06-17] MEDS: morphine SULFATE 10 MG/ML, 1ML IVPush PRN (04:03)
[2018-06-17 05:33] LABS: MEAN CORPUSCULAR HEMOGLOBIN 32.4 pg (27.5-34.5); MEAN CORPUSCULAR VOLUME 95.3 fL (81-97); MEAN PLATELET VOLUME 7.8 fL (7.4-10.4); PLATELET COUNT 280 x10^3/uL (130-400); RED BLOOD COUNT 4.08 x10^6/uL (4.38-5.82); RED CELL DISTRIBUTION WIDTH 14.1 % (9.4-14.8)
[2018-06-17 05:42] LABS: CHLORIDE 110 mmol/L (98-107)
[2018-06-17 05:47] LABS: ALANINE AMINOTRANSFERASE 19 U/L (12-78); ALBUMIN 2.6 g/dL (3.4-5.0); ALKALINE PHOSPHATASE 48 U/L (45-117); ANION GAP 6 mmol/L (5-15); BILIRUBIN,TOTAL 0.7 mg/dL (0.2-1.0); CALCIUM 8.1 mg/dL (8.5-10.1); CREATININE 1.38 mg/dL (0.7-1.3); TOTAL PROTEIN 6.4 g/dL (6.4-8.2)
[2018-06-17 06:29] LABS: BASOPHILS # (AUTO) 0.03 x10^3/uL (0-0.1); BASOPHILS % (AUTO) 0 % (0-1); EOSINOPHILS # (AUTO) 0.28 x10^3/uL (0-0.4); EOSINOPHILS % (AUTO) 3 % (1-7); LYMPHOCYTES % (AUTO) 15 % (22-44); MD SCAN; MONOCYTES # (AUTO) 1.59 x10^3/uL (0.2-0.8); MONOCYTES % (AUTO) 14 % (2-9); NEUTROPHILS # (AUTO) 7.65 x10^3/uL (1.8-6.8); NEUTROPHILS % (AUTO) 68 % (42-75)
[2018-06-17] MEDS: SOTALOL 80MG TABLET PO SCH ×2 (06:42→17:17)
[2018-06-17 08:24] VITALS: BP 102/70
[2018-06-17] MEDS: DUTASTERIDE 0.5 MG HOMEMEDPO SCH (09:00)
[2018-06-17] MEDS: MONTELUKAST 10 MG TABLET PO SCH (09:27)
[2018-06-17] MEDS: KETOROLAC 30 MG/1 ML IV PRN ×3 (09:27→23:24)
[2018-06-17] MEDS: APIXABAN 5 MG TABLET PO SCH ×2 (09:27→20:46)
[2018-06-17 13:50] VITALS: BP 100/68
[2018-06-17 20:30] VITALS: BP 104/69
[2018-06-17] MEDS: ATORVASTATIN 10 MG TABLET PO SCH (20:46)
[2018-06-17] MEDS: PRIMIDONE 50 MG TABLET PO SCH (20:46)
[2018-06-17] MEDS: MELATONIN 5 MG TABLET PO PRN (22:04)
[2018-06-18 02:13] VITALS: BP 97/66
[2018-06-18 05:08] LABS: BASOPHILS # (AUTO) 0.03 x10^3/uL (0-0.1); BASOPHILS % (AUTO) 0 % (0-1); EOSINOPHILS # (AUTO) 0.39 x10^3/uL (0-0.4); EOSINOPHILS % (AUTO) 4 % (1-7); LYMPHOCYTES # (AUTO) 1.32 x10^3/uL (1-3.4); LYMPHOCYTES % (AUTO) 14 % (22-44); MD NO; MEAN CORPUSCULAR HEMOGLOBIN 32.6 pg (27.5-34.5); MEAN CORPUSCULAR HGB CONC 34.2 g/dL (33.2-36.2); MEAN CORPUSCULAR VOLUME 95.3 fL (81-97); MEAN PLATELET VOLUME 7.7 fL (7.4-10.4); MONOCYTES # (AUTO) 1.04 x10^3/uL (0.2-0.8); MONOCYTES % (AUTO) 11 % (2-9); NEUTROPHILS # (AUTO) 7.01 x10^3/uL (1.8-6.8); NEUTROPHILS % (AUTO) 72 % (42-75); PLATELET COUNT 260 x10^3/uL (130-400); RED BLOOD COUNT 3.91 x10^6/uL (4.38-5.82); RED CELL DISTRIBUTION WIDTH 13.9 % (9.4-14.8)
[2018-06-18 05:20] LABS: ANION GAP 8 mmol/L (5-15); CALCIUM 8.5 mg/dL (8.5-10.1); CHLORIDE 111 mmol/L (98-107); CREATININE 1.29 mg/dL (0.7-1.3)
[2018-06-18] MEDS: PIPERACILLIN/TAZO/PMX 4.5GM 100 ML IV SCH ×4 (05:32→22:53)
[2018-06-18] MEDS: SOTALOL 80MG TABLET PO SCH ×2 (06:18→17:30)
[2018-06-18 07:25] VITALS: BP 99/60
[2018-06-18] MEDS: DUTASTERIDE 0.5 MG HOMEMEDPO SCH (07:32)
[2018-06-18] MEDS: MONTELUKAST 10 MG TABLET PO SCH (07:43)
[2018-06-18] MEDS: APIXABAN 5 MG TABLET PO SCH ×2 (07:43→19:44)
[2018-06-18] MEDS: PRIMIDONE 50 MG TABLET PO SCH (07:43)
[2018-06-18] MEDS: SODIUM CHLORIDE 0.9% 1,000 ML IV SCH (13:24)
[2018-06-18 13:27] VITALS: BP 114/78
[2018-06-18] MEDS: ATORVASTATIN 10 MG TABLET PO SCH (19:44)
[2018-06-18] MEDS: MELATONIN 5 MG TABLET PO PRN (19:47)
[2018-06-18 19:48] VITALS: BP 109/61
[2018-06-18] MEDS: KETOROLAC 30 MG/1 ML IV PRN (22:53)
[2018-06-18] MEDS: DOCUSATE 100 MG CAPSULE PO PRN (22:53)
[2018-06-19] MEDS: SODIUM CHLORIDE 0.9% 1,000 ML IV SCH ×2 (03:16→16:33)
[2018-06-19 03:38] VITALS: BP 98/67
[2018-06-19] MEDS: PIPERACILLIN/TAZO/PMX 4.5GM 100 ML IV SCH ×4 (04:45→22:53)
[2018-06-19 05:34] LABS: BASOPHILS # (AUTO) 0.02 x10^3/uL (0-0.1); BASOPHILS % (AUTO) 0 % (0-1); EOSINOPHILS # (AUTO) 0.15 x10^3/uL (0-0.4); EOSINOPHILS % (AUTO) 2 % (1-7); LYMPHOCYTES # (AUTO) 1.33 x10^3/uL (1-3.4); LYMPHOCYTES % (AUTO) 17 % (22-44); MD NO; MEAN CORPUSCULAR HEMOGLOBIN 31.9 pg (27.5-34.5); MEAN CORPUSCULAR HGB CONC 33.6 g/dL (33.2-36.2); MEAN CORPUSCULAR VOLUME 94.8 fL (81-97); MEAN PLATELET VOLUME 7.8 fL (7.4-10.4); MONOCYTES # (AUTO) 0.94 x10^3/uL (0.2-0.8); MONOCYTES % (AUTO) 12 % (2-9); NEUTROPHILS # (AUTO) 5.36 x10^3/uL (1.8-6.8); NEUTROPHILS % (AUTO) 69 % (42-75); PLATELET COUNT 234 x10^3/uL (130-400); RED BLOOD COUNT 3.44 x10^6/uL (4.38-5.82); RED CELL DISTRIBUTION WIDTH 13.4 % (9.4-14.8)
[2018-06-19] MEDS: SOTALOL 80MG TABLET PO SCH ×2 (05:34→17:59)
[2018-06-19 05:42] LABS: ANION GAP 10 mmol/L (5-15); CALCIUM 8.2 mg/dL (8.5-10.1); CHLORIDE 111 mmol/L (98-107)
[2018-06-19 05:43] LABS: CREATININE 1.08 mg/dL (0.7-1.3)
[2018-06-19] MEDS: DUTASTERIDE 0.5 MG HOMEMEDPO SCH (07:21)
[2018-06-19] MEDS: PRIMIDONE 50 MG TABLET PO SCH (08:08)
[2018-06-19] MEDS: MONTELUKAST 10 MG TABLET PO SCH (08:08)
[2018-06-19] MEDS: APIXABAN 5 MG TABLET PO SCH ×2 (08:08→21:26)
[2018-06-19 08:12] VITALS: BP 109/77
[2018-06-19 14:00] VITALS: BP 126/79
[2018-06-19 20:02] VITALS: BP 129/83
[2018-06-19] MEDS: KETOROLAC 30 MG/1 ML IV PRN (21:26)
[2018-06-19] MEDS: MELATONIN 5 MG TABLET PO PRN (21:26)
[2018-06-19] MEDS: ATORVASTATIN 10 MG TABLET PO SCH (21:26)
[2018-06-19] MEDS: DOCUSATE 100 MG CAPSULE PO PRN (21:26)
[2018-06-20 03:42] VITALS: BP 130/95
[2018-06-20] MEDS: SODIUM CHLORIDE 0.9% 1,000 ML IV SCH (05:09)
[2018-06-20] MEDS: SOTALOL 80MG TABLET PO SCH ×2 (05:09→19:18)
[2018-06-20] MEDS: PIPERACILLIN/TAZO/PMX 4.5GM 100 ML IV SCH ×4 (05:09→22:52)
[2018-06-20 07:44] LABS: BASOPHILS # (AUTO) 0.02 x10^3/uL (0-0.1); BASOPHILS % (AUTO) 0 % (0-1); EOSINOPHILS # (AUTO) 0.18 x10^3/uL (0-0.4); EOSINOPHILS % (AUTO) 3 % (1-7); LYMPHOCYTES # (AUTO) 1.38 x10^3/uL (1-3.4); LYMPHOCYTES % (AUTO) 22 % (22-44); MD NO; MEAN CORPUSCULAR HEMOGLOBIN 31.2 pg (27.5-34.5); MEAN CORPUSCULAR HGB CONC 32.9 g/dL (33.2-36.2); MEAN CORPUSCULAR VOLUME 94.8 fL (81-97); MEAN PLATELET VOLUME 7.3 fL (7.4-10.4); MONOCYTES # (AUTO) 0.71 x10^3/uL (0.2-0.8); MONOCYTES % (AUTO) 11 % (2-9); NEUTROPHILS # (AUTO) 3.98 x10^3/uL (1.8-6.8); NEUTROPHILS % (AUTO) 64 % (42-75); PLATELET COUNT 279 x10^3/uL (130-400); RED BLOOD COUNT 3.96 x10^6/uL (4.38-5.82); RED CELL DISTRIBUTION WIDTH 13.7 % (9.4-14.8)
[2018-06-20 07:51] LABS: ANION GAP 6 mmol/L (5-15); CHLORIDE 113 mmol/L (98-107); CREATININE 0.92 mg/dL (0.7-1.3)
[2018-06-20 08:00] VITALS: BP 130/88
[2018-06-20] MEDS: APIXABAN 5 MG TABLET PO SCH ×2 (08:16→20:50)
[2018-06-20] MEDS: DUTASTERIDE 0.5 MG HOMEMEDPO SCH (08:16)
[2018-06-20] MEDS: D5%-0.45NACL+KCL 20MEQ 1,000 ML IV SCH ×2 (08:16→20:50)
[2018-06-20] MEDS: MONTELUKAST 10 MG TABLET PO SCH (08:17)
[2018-06-20] MEDS: PRIMIDONE 50 MG TABLET PO SCH (08:23)
[2018-06-20 14:30] VITALS: BP 132/86
[2018-06-20] MEDS: ATORVASTATIN 10 MG TABLET PO SCH (20:50)
[2018-06-20] MEDS: MELATONIN 5 MG TABLET PO PRN (20:51)
[2018-06-20] MEDS: KETOROLAC 30 MG/1 ML IV PRN (20:55)
[2018-06-20 21:01] VITALS: BP 125/86
[2018-06-21 02:30] VITALS: BP 122/78
[2018-06-21] MEDS: PIPERACILLIN/TAZO/PMX 4.5GM 100 ML IV SCH ×2 (04:47→11:49)
[2018-06-21] MEDS: SOTALOL 80MG TABLET PO SCH (06:17)
[2018-06-21] MEDS: DUTASTERIDE 0.5 MG HOMEMEDPO SCH (09:00)
[2018-06-21 10:16] VITALS: BP 114/77
[2018-06-21] MEDS: MONTELUKAST 10 MG TABLET PO SCH (10:19)
[2018-06-21] MEDS: PRIMIDONE 50 MG TABLET PO SCH (10:19)
[2018-06-21] MEDS: D5%-0.45NACL+KCL 20MEQ 1,000 ML IV SCH (11:49)
[2018-06-21] MEDS: APIXABAN 5 MG TABLET PO SCH (12:34)
[2018-06-21] MEDS ORDERED: AMOX1TAB64 PO ×3 (14:18→15:13)
[2018-06-21 16:30] VITALS: BP 129/85
== END 2018-06-21 16:55 | disposition home or self-care (01) | DRG 392 ==
LOC: ED 13:47 → EDIP 15:27 → 4NOR 16:58 → 3WST 06-19 23:28 → ICU 06-20 07:09
PROVIDERS: ADMIT Internal Medicine; ATTEND Internal Medicine
DX: K57.32 Diverticulitis of large intestine without perforation or abscess without bleeding (principal); D68.69 Other thrombophilia; J98.11 Atelectasis; I95.9 Hypotension, unspecified; Z95.1 Presence of aortocoronary bypass graft; I25.10 Atherosclerotic heart disease of native coronary artery without angina pectoris; I48.0 Paroxysmal atrial fibrillation; Z79.01 Long term (current) use of anticoagulants; E78.5 Hyperlipidemia, unspecified; Z95.2 Presence of prosthetic heart valve; I10 Essential (primary) hypertension; Z82.49 Family history of ischemic heart disease and other diseases of the circulatory system; J44.9 Chronic obstructive pulmonary disease, unspecified; N40.0 Benign prostatic hyperplasia without lower urinary tract symptoms
CPT/HCPCS: 36415; 74177; 80048; 80053; 81003; 82962; 83605; 83735; 84100; 85025; 85651; 86140; 87040; 87081; 96365; 96375; G0378; J1885; J2405; J2543; Q9967; J2270; J3480; J3490; J7030

== ENCOUNTER 2018-06-23 11:06 | Outpatient (CLI) | payer MEDICARE, OTHER ==
[~2018-06-23 11:06] MED LIST changes: +AMOX1TAB64 PO
[2018-06-23] MEDS ORDERED: SOTA80TA19 PO (13:04)
[2018-06-23] MEDS ORDERED: CIPR500T87 PO (13:04)
[2018-06-23] MEDS ORDERED: MONT10TA6 PO (13:04)
[2018-06-23] MEDS ORDERED: ACET-1600 PO (13:04)
[2018-06-23] MEDS ORDERED: METR500T PO (13:04)
[2018-06-23] MEDS ORDERED: DUTA0.5C PO (13:04)
[2018-06-23] MEDS ORDERED: TERA5CAP3 PO (13:04)
[2018-06-23] MEDS ORDERED: APIX5TAB PO (13:06)
== END 2018-06-23 23:59 | disposition home or self-care (01) ==
LOC: STAR 11:06
PROVIDERS: ATTEND Surgery
DX: Z01.818 Encounter for other preprocedural examination (principal); I48.91 Unspecified atrial fibrillation; I44.4 Left anterior fascicular block
CPT/HCPCS: 93005

== ENCOUNTER 2018-06-28 12:29 | Inpatient (IN) | payer MEDICARE, OTHER ==
[~2018-06-28] VITALS: Ht 177.8 cm; Wt 93.5 kg
[~2018-06-28 12:29] MED LIST changes: +ACET-1600 PO; +ACETAMINOPHEN 500 MG TABLET PO ONE; +BUPIVACAINE/PF 0.5% ONE; +GABAPENTIN 300 MG CAPSULE PO ONE; +INDOCYANINE GREEN 25 MG VIAL ONE; +SOTA80TA19 PO; +TERA5CAP3 PO
[2018-06-28] MEDS ORDERED: LACTATED RINGERS 1,000 ML IV SCH (13:03)
[2018-06-28 13:34] VITALS: BP 96/59
[2018-06-28] MEDS ORDERED: FENTANYL PF 250 MCG/5ML ONE (13:47)
[2018-06-28] MEDS ORDERED: CEFOTETAN 2 GM ONE (13:56)
[2018-06-28] MEDS ORDERED: PHENYLEPHRINE 10 MG/ML ONE (13:56)
[2018-06-28] MEDS ORDERED: DEXAMETHASONE 4 MG/ML, 1ML ONE (13:56)
[2018-06-28] MEDS ORDERED: ACETAMINOPHEN 500 MG TABLET PO ONE (14:00)
[2018-06-28] MEDS ORDERED: GABAPENTIN 300 MG CAPSULE PO ONE (14:00)
[2018-06-28] MEDS ORDERED: HYDROmorphone 2 MG/ML, 1ML IVPush PRN (15:00)
[2018-06-28] MEDS ORDERED: hydrALAzine 20 MG/ML, 1ML IV PRN (15:00)
[2018-06-28] MEDS ORDERED: METOPROLOL 1 MG/ML, 5ML IV PRN (15:00)
[2018-06-28] MEDS ORDERED: ALBUTEROL/IPRATROPIUM 2.5MG/0.5MG, 3 ML NPPB PRN (15:00)
[2018-06-28] MEDS ORDERED: MIDAZOLAM 1 MG/ML, 2ML IV PRN (15:00)
[2018-06-28] MEDS ORDERED: ONDANSETRON 2MG/ML, 2ML IV PRN (15:00)
[2018-06-28] MEDS ORDERED: SCOPOLAMINE PATCH, 1.5MG PATCH.TD72 TD PRN ×2 (15:00→17:00)
[2018-06-28] MEDS ORDERED: PROMETHAZINE 25 MG/ML, 1ML IV PRN (15:00)
[2018-06-28] MEDS ORDERED: OXYcodone 5 MG/5 ML ORAL.SOL UDC PO PRN (15:00)
[2018-06-28] MEDS ORDERED: ROCURONIUM 10MG/ML,5ML ONE (16:09)
[2018-06-28] MEDS ORDERED: CEFAZOLIN 1,000 MG ONE (16:09)
[2018-06-28] MEDS ORDERED: GLYCOPYRROLATE 0.2MG/1ML, 5ML ONE (16:09)
[2018-06-28] MEDS ORDERED: NEOSTIGMINE 1 MG/ML, 10ML ONE (16:09)
[2018-06-28] MEDS ORDERED: PROPOFOL 10 MG/ML, 20ML ONE (16:09)
[2018-06-28] MEDS ORDERED: ONDANSETRON 2MG/ML, 2ML ONE (16:09)
[2018-06-28] MEDS ORDERED: SUCCINYLCHOLINE 20 MG/ML, 10ML ONE (16:09)
[2018-06-28] MEDS ORDERED: LORazepam 2 MG/ML, 1ML IVPush PRN (17:00)
[2018-06-28] MEDS ORDERED: DIPHENHYDRAMINE 25 MG CAPSULE PO PRN (17:00)
[2018-06-28] MEDS ORDERED: ONDANSETRON 2MG/ML, 2ML IVPush PRN (17:00)
[2018-06-28] MEDS ORDERED: DEXAMETHASONE 4 MG/ML, 1ML IVPush PRN (17:00)
[2018-06-28] MEDS ORDERED: HYDROmorphone 1 MG/ML, 1ML AMP IVPush PRN (17:00)
[2018-06-28] MEDS ORDERED: CALCIUM CARBONATE 500 MG TAB.CHEW PO PRN (17:00)
[2018-06-28] MEDS ORDERED: FENTANYL PF 100 MCG/2ML ONE (17:13)
[2018-06-28] MEDS ORDERED: OXYcodone 5 MG/5 ML ORAL.SOL UDC ONE (17:13)
[2018-06-28] MEDS: FENTANYL PF 100 MCG/2ML IV PRN ×3 (17:17→18:13)
[2018-06-28 18:34] VITALS: BP 118/67
[2018-06-28 19:46] VITALS: BP 112/72
[2018-06-28] MEDS ORDERED: ALBUTEROL SULFATE 2.5 MG/3 ML NPPB PRN (20:00)
[2018-06-28] MEDS: D5%-0.45NACL+KCL 20MEQ 1,000 ML IV SCH (20:00)
[2018-06-28] MEDS: ACETAMINOPHEN 100 ML IVPB SCH (20:00)
[2018-06-28] MEDS: PIPERACILLIN/TAZO/PMX 3.375GM 50 ML IVPB SCH (21:25)
[2018-06-28] MEDS: IBUPROFEN 800 MG TABLET PO SCH (21:27)
[2018-06-28] MEDS: SOTALOL 80MG TABLET PO SCH (21:27)
[2018-06-28] MEDS: MONTELUKAST 10 MG TABLET PO SCH (21:28)
[2018-06-29] MEDS: DIPHENHYDRAMINE 50 MG/ML, 1ML IVPush PRN ×2 (00:45→22:56)
[2018-06-29 01:08] VITALS: BP 98/68
[2018-06-29] MEDS: ACETAMINOPHEN 100 ML IVPB SCH ×2 (02:00→08:00)
[2018-06-29 02:49] LABS: BASOPHILS # (AUTO) 0.01 x10^3/uL (0-0.1); BASOPHILS % (AUTO) 0 % (0-1); EOSINOPHILS % (AUTO) 0 % (1-7); LYMPHOCYTES % (AUTO) 5 % (22-44); MD NO; MEAN CORPUSCULAR HEMOGLOBIN 32.5 pg (27.5-34.5); MEAN CORPUSCULAR HGB CONC 34.5 g/dL (33.2-36.2); MEAN CORPUSCULAR VOLUME 94.3 fL (81-97); MEAN PLATELET VOLUME 7.1 fL (7.4-10.4); MONOCYTES # (AUTO) 0.74 x10^3/uL (0.2-0.8); MONOCYTES % (AUTO) 6 % (2-9); NEUTROPHILS # (AUTO) 10.21 x10^3/uL (1.8-6.8); NEUTROPHILS % (AUTO) 88 % (42-75); PLATELET COUNT 237 x10^3/uL (130-400); RED CELL DISTRIBUTION WIDTH 14.4 % (9.4-14.8)
[2018-06-29 02:57] LABS: ANION GAP 4 mmol/L (5-15); CHLORIDE 113 mmol/L (98-107); CREATININE 1.25 mg/dL (0.7-1.3)
[2018-06-29 03:04] LABS: C-REACTIVE PROTEIN, QUANT 0.96 mg/dL (0.02-0.49)
[2018-06-29] MEDS: PIPERACILLIN/TAZO/PMX 3.375GM 50 ML IVPB SCH ×4 (05:36→21:06)
[2018-06-29] MEDS: D5%-0.45NACL+KCL 20MEQ 1,000 ML IV SCH (07:48)
[2018-06-29 08:08] VITALS: BP 109/71
[2018-06-29] MEDS ORDERED: TERAZOSIN 1MG CAPSULE ONE (08:50)
[2018-06-29] MEDS: IBUPROFEN 800 MG TABLET PO SCH ×3 (08:56→21:07)
[2018-06-29] MEDS: TERAZOSIN 5MG CAPSULE PO SCH (08:56)
[2018-06-29] MEDS: ACETAMINOPHEN 500 MG TABLET PO SCH ×2 (08:56→13:30)
[2018-06-29] MEDS: SOTALOL 80MG TABLET PO SCH ×2 (08:57→21:00)
[2018-06-29] MEDS: OXYcodone IR 5MG TABLET PO PRN ×2 (10:35→16:14)
[2018-06-29] MEDS ORDERED: DIPHENHYDRAMINE 12.5MG/5ML, 10ML UDC PO PRN (11:00)
[2018-06-29] MEDS: ENOXAPARIN 40 MG/0.4 ML SQ SCH (11:56)
[2018-06-29 12:44] LABS: CLOSTRIDIUM DIFFICILE ANTIGEN NEGATIVE; CLOSTRIDIUM DIFFICILE TOXIN NEGATIVE (Negative)
[2018-06-29 14:40] VITALS: BP 95/61
[2018-06-29 17:46] VITALS: BP 100/61
[2018-06-29] MEDS ORDERED: METOPROLOL TARTRATE 25 MG TABLET PO SCH (18:00)
[2018-06-29 20:00] VITALS: BP 101/64
[2018-06-29] MEDS: MONTELUKAST 10 MG TABLET PO SCH (21:08)
[2018-06-30 01:05] VITALS: BP 108/68
[2018-06-30] MEDS: PIPERACILLIN/TAZO/PMX 3.375GM 50 ML IVPB SCH ×4 (02:41→22:09)
[2018-06-30 03:36] LABS: BASOPHILS # (AUTO) 0.05 x10^3/uL (0-0.1); BASOPHILS % (AUTO) 0 % (0-1); EOSINOPHILS # (AUTO) 0.11 x10^3/uL (0-0.4); EOSINOPHILS % (AUTO) 1 % (1-7); LYMPHOCYTES # (AUTO) 1.52 x10^3/uL (1-3.4); LYMPHOCYTES % (AUTO) 12 % (22-44); MD NO; MEAN CORPUSCULAR HEMOGLOBIN 31.9 pg (27.5-34.5); MEAN CORPUSCULAR HGB CONC 33.2 g/dL (33.2-36.2); MEAN CORPUSCULAR VOLUME 95.8 fL (81-97); MEAN PLATELET VOLUME 7.5 fL (7.4-10.4); MONOCYTES # (AUTO) 1.26 x10^3/uL (0.2-0.8); MONOCYTES % (AUTO) 10 % (2-9); NEUTROPHILS # (AUTO) 9.74 x10^3/uL (1.8-6.8); NEUTROPHILS % (AUTO) 77 % (42-75); PLATELET COUNT 224 x10^3/uL (130-400); RED BLOOD COUNT 3.85 x10^6/uL (4.38-5.82); RED CELL DISTRIBUTION WIDTH 15.3 % (9.4-14.8)
[2018-06-30 03:44] LABS: ANION GAP 6 mmol/L (5-15); CALCIUM 8.4 mg/dL (8.5-10.1); CHLORIDE 106 mmol/L (98-107); CREATININE 1.34 mg/dL (0.7-1.3)
[2018-06-30] MEDS: METOPROLOL TARTRATE 25 MG TABLET PO SCH ×2 (05:53→18:49)
[2018-06-30 09:00] VITALS: BP 103/69
[2018-06-30] MEDS ORDERED: TERAZOSIN 1MG CAPSULE ONE (09:17)
[2018-06-30] MEDS: ENOXAPARIN 40 MG/0.4 ML SQ SCH (09:33)
[2018-06-30] MEDS: IBUPROFEN 800 MG TABLET PO SCH ×3 (09:34→22:10)
[2018-06-30] MEDS: SOTALOL 80MG TABLET PO SCH ×2 (09:35→22:10)
[2018-06-30] MEDS: TERAZOSIN 5MG CAPSULE PO SCH (09:35)
[2018-06-30 14:00] VITALS: BP 138/74
[2018-06-30] MEDS: OXYcodone IR 5MG TABLET PO PRN (18:50)
[2018-06-30 18:52] VITALS: BP 97/64
[2018-06-30 22:06] VITALS: BP 103/67
[2018-06-30] MEDS: MONTELUKAST 10 MG TABLET PO SCH (22:10)
[2018-06-30] MEDS: DIPHENHYDRAMINE 50 MG/ML, 1ML IVPush PRN (22:31)
[2018-07-01 03:08] LABS: BASOPHILS # (AUTO) 0.03 x10^3/uL (0-0.1); BASOPHILS % (AUTO) 0 % (0-1); EOSINOPHILS # (AUTO) 0.31 x10^3/uL (0-0.4); EOSINOPHILS % (AUTO) 3 % (1-7); LYMPHOCYTES # (AUTO) 1.62 x10^3/uL (1-3.4); LYMPHOCYTES % (AUTO) 18 % (22-44); MD NO; MEAN CORPUSCULAR HEMOGLOBIN 32.5 pg (27.5-34.5); MEAN CORPUSCULAR VOLUME 95.5 fL (81-97); MEAN PLATELET VOLUME 7.1 fL (7.4-10.4); MONOCYTES # (AUTO) 0.94 x10^3/uL (0.2-0.8); MONOCYTES % (AUTO) 10 % (2-9); NEUTROPHILS # (AUTO) 6.19 x10^3/uL (1.8-6.8); NEUTROPHILS % (AUTO) 68 % (42-75); PLATELET COUNT 233 x10^3/uL (130-400); RED BLOOD COUNT 3.62 x10^6/uL (4.38-5.82); RED CELL DISTRIBUTION WIDTH 14.7 % (9.4-14.8)
[2018-07-01 03:16] LABS: ANION GAP 5 mmol/L (5-15); C-REACTIVE PROTEIN, QUANT 0.55 mg/dL (0.02-0.49); CALCIUM 8.1 mg/dL (8.5-10.1); CHLORIDE 111 mmol/L (98-107); CREATININE 1.05 mg/dL (0.7-1.3)
[2018-07-01 03:21] VITALS: BP 101/71
[2018-07-01] MEDS: PIPERACILLIN/TAZO/PMX 3.375GM 50 ML IVPB SCH ×4 (03:51→22:00)
[2018-07-01 05:51] VITALS: BP 111/78
[2018-07-01] MEDS: METOPROLOL TARTRATE 25 MG TABLET PO SCH ×2 (05:54→16:40)
[2018-07-01 08:00] VITALS: BP 105/65
[2018-07-01] MEDS ORDERED: TERAZOSIN 1MG CAPSULE ONE (09:53)
[2018-07-01] MEDS: IBUPROFEN 800 MG TABLET PO SCH ×3 (10:14→21:40)
[2018-07-01] MEDS: SOTALOL 80MG TABLET PO SCH ×2 (10:15→21:40)
[2018-07-01] MEDS: TERAZOSIN 5MG CAPSULE PO SCH (10:22)
[2018-07-01] MEDS ORDERED: DIGOXIN 0.25 MG/ML, 2ML ONE (12:24)
[2018-07-01] MEDS: ENOXAPARIN 40 MG/0.4 ML SQ SCH (12:29)
[2018-07-01] MEDS ORDERED: DIGOXIN 0.25 MG/ML, 2ML IVPush ONE (12:30)
[2018-07-01 13:30] VITALS: BP 115/76
[2018-07-01 18:47] VITALS: BP 107/72
[2018-07-01] MEDS: DIPHENHYDRAMINE 50 MG/ML, 1ML IVPush PRN (21:40)
[2018-07-01] MEDS: MONTELUKAST 10 MG TABLET PO SCH (21:40)
[2018-07-02 02:21] VITALS: BP 94/61
[2018-07-02 03:01] LABS: BASOPHILS # (AUTO) 0.03 x10^3/uL (0-0.1); BASOPHILS % (AUTO) 0 % (0-1); EOSINOPHILS # (AUTO) 0.35 x10^3/uL (0-0.4); EOSINOPHILS % (AUTO) 5 % (1-7); LYMPHOCYTES # (AUTO) 1.42 x10^3/uL (1-3.4); LYMPHOCYTES % (AUTO) 19 % (22-44); MD NO; MEAN CORPUSCULAR HEMOGLOBIN 30.9 pg (27.5-34.5); MEAN CORPUSCULAR HGB CONC 32.6 g/dL (33.2-36.2); MEAN CORPUSCULAR VOLUME 94.7 fL (81-97); MEAN PLATELET VOLUME 7.2 fL (7.4-10.4); MONOCYTES # (AUTO) 0.94 x10^3/uL (0.2-0.8); MONOCYTES % (AUTO) 12 % (2-9); NEUTROPHILS # (AUTO) 4.95 x10^3/uL (1.8-6.8); NEUTROPHILS % (AUTO) 64 % (42-75); PLATELET COUNT 246 x10^3/uL (130-400); RED BLOOD COUNT 3.74 x10^6/uL (4.38-5.82); RED CELL DISTRIBUTION WIDTH 14.4 % (9.4-14.8)
[2018-07-02 03:16] LABS: ANION GAP 6 mmol/L (5-15); C-REACTIVE PROTEIN, QUANT 0.39 mg/dL (0.02-0.49); CALCIUM 8.5 mg/dL (8.5-10.1); CHLORIDE 111 mmol/L (98-107); CREATININE 0.97 mg/dL (0.7-1.3)
[2018-07-02] MEDS: PIPERACILLIN/TAZO/PMX 3.375GM 50 ML IVPB SCH ×3 (05:30→18:09)
[2018-07-02] MEDS: METOPROLOL TARTRATE 25 MG TABLET PO SCH (05:39)
[2018-07-02 06:09] VITALS: BP 127/74
[2018-07-02] MEDS: OXYcodone IR 5MG TABLET PO PRN (06:18)
[2018-07-02] MEDS: IBUPROFEN 800 MG TABLET PO SCH ×3 (09:40→22:06)
[2018-07-02] MEDS: TERAZOSIN 5MG CAPSULE PO SCH (09:40)
[2018-07-02] MEDS: SOTALOL 80MG TABLET PO SCH (09:42)
[2018-07-02] MEDS ORDERED: FILTER 0.22 MICRON IV ONE (11:00)
[2018-07-02] MEDS ORDERED: AMIODARONE 50 MG/ML, 3ML IVPush ONE (11:00)
[2018-07-02] MEDS ORDERED: AMIODARONE 150 MG in DEXTROSE 5% 100 ML IV ONE (11:00)
[2018-07-02] MEDS: APIXABAN 5 MG TABLET PO SCH ×2 (11:46→22:06)
[2018-07-02 12:59] VITALS: BP 128/83
[2018-07-02] MEDS ORDERED: IBUPROFEN 200 MG TABLET ONE (18:03)
[2018-07-02 19:07] VITALS: BP 97/68
[2018-07-02] MEDS: MONTELUKAST 10 MG TABLET PO SCH (22:06)
[2018-07-02] MEDS: DIPHENHYDRAMINE 50 MG/ML, 1ML IVPush PRN (22:06)
[2018-07-03 01:12] VITALS: BP 119/72
[2018-07-03 03:14] LABS: BASOPHILS # (AUTO) 0.05 x10^3/uL (0-0.1); BASOPHILS % (AUTO) 1 % (0-1); EOSINOPHILS # (AUTO) 0.49 x10^3/uL (0-0.4); EOSINOPHILS % (AUTO) 6 % (1-7); LYMPHOCYTES # (AUTO) 1.47 x10^3/uL (1-3.4); LYMPHOCYTES % (AUTO) 19 % (22-44); MD NO; MEAN CORPUSCULAR HEMOGLOBIN 32.1 pg (27.5-34.5); MEAN CORPUSCULAR HGB CONC 33.7 g/dL (33.2-36.2); MEAN PLATELET VOLUME 7.1 fL (7.4-10.4); MONOCYTES # (AUTO) 0.88 x10^3/uL (0.2-0.8); MONOCYTES % (AUTO) 12 % (2-9); NEUTROPHILS # (AUTO) 4.74 x10^3/uL (1.8-6.8); NEUTROPHILS % (AUTO) 62 % (42-75); PLATELET COUNT 255 x10^3/uL (130-400); RED BLOOD COUNT 3.76 x10^6/uL (4.38-5.82); RED CELL DISTRIBUTION WIDTH 14.8 % (9.4-14.8)
[2018-07-03 03:25] LABS: ANION GAP 5 mmol/L (5-15); C-REACTIVE PROTEIN, QUANT 0.33 mg/dL (0.02-0.49); CALCIUM 8.5 mg/dL (8.5-10.1); CHLORIDE 110 mmol/L (98-107); CREATININE 0.91 mg/dL (0.7-1.3)
[2018-07-03] MEDS: OXYcodone IR 5MG TABLET PO PRN (04:18)
[2018-07-03 06:25] VITALS: BP 130/81
[2018-07-03] MEDS: TERAZOSIN 5MG CAPSULE PO SCH (07:50)
[2018-07-03] MEDS: APIXABAN 5 MG TABLET PO SCH ×2 (07:51→21:52)
[2018-07-03] MEDS: AMIODARONE 200 MG TABLET PO SCH ×3 (07:51→21:52)
[2018-07-03] MEDS ORDERED: AMIODARONE 50 MG/ML, 3ML IVPush ONE (10:00)
[2018-07-03] MEDS: IBUPROFEN 800 MG TABLET PO SCH ×2 (10:02→18:54)
[2018-07-03] MEDS ORDERED: FILTER 0.22 MICRON IV ONE (11:00)
[2018-07-03] MEDS ORDERED: AMIODARONE 150 MG in DEXTROSE 5% 100 ML IV ONE (11:00)
[2018-07-03 13:30] VITALS: BP 148/77
[2018-07-03 20:26] VITALS: BP 137/74
[2018-07-03] MEDS: DIPHENHYDRAMINE 25 MG CAPSULE PO PRN (21:52)
[2018-07-03] MEDS: MONTELUKAST 10 MG TABLET PO SCH (21:52)
[2018-07-04 01:25] VITALS: BP 111/60
[2018-07-04 03:59] LABS: BASOPHILS # (AUTO) 0.03 x10^3/uL (0-0.1); BASOPHILS % (AUTO) 0 % (0-1); EOSINOPHILS # (AUTO) 0.45 x10^3/uL (0-0.4); EOSINOPHILS % (AUTO) 6 % (1-7); LYMPHOCYTES % (AUTO) 20 % (22-44); MD NO; MEAN CORPUSCULAR HEMOGLOBIN 32.4 pg (27.5-34.5); MEAN CORPUSCULAR HGB CONC 33.6 g/dL (33.2-36.2); MEAN CORPUSCULAR VOLUME 96.4 fL (81-97); MEAN PLATELET VOLUME 7.2 fL (7.4-10.4); MONOCYTES # (AUTO) 0.83 x10^3/uL (0.2-0.8); MONOCYTES % (AUTO) 12 % (2-9); NEUTROPHILS # (AUTO) 4.45 x10^3/uL (1.8-6.8); NEUTROPHILS % (AUTO) 62 % (42-75); PLATELET COUNT 254 x10^3/uL (130-400); RED BLOOD COUNT 3.62 x10^6/uL (4.38-5.82); RED CELL DISTRIBUTION WIDTH 14.9 % (9.4-14.8)
[2018-07-04 04:09] LABS: ANION GAP 5 mmol/L (5-15); CALCIUM 8.7 mg/dL (8.5-10.1); CHLORIDE 109 mmol/L (98-107); CREATININE 0.78 mg/dL (0.7-1.3)
[2018-07-04 06:45] VITALS: BP 109/60
[2018-07-04] MEDS: APIXABAN 5 MG TABLET PO SCH ×2 (09:04→21:08)
[2018-07-04] MEDS: TERAZOSIN 5MG CAPSULE PO SCH (09:04)
[2018-07-04] MEDS: AMIODARONE 200 MG TABLET PO SCH ×2 (09:04→21:08)
[2018-07-04] MEDS ORDERED: AMIODARONE 150 MG in DEXTROSE 5% 100 ML IV ONE ×2 (09:30→15:30)
[2018-07-04] MEDS: FILTER 0.22 MICRON FOR AMIODARONE IV PRN (10:15)
[2018-07-04 15:23] VITALS: BP 113/77
[2018-07-04] MEDS: OXYcodone IR 5MG TABLET PO PRN (18:04)
[2018-07-04] MEDS ORDERED: ACETAMINOPHEN 500 MG TABLET PO PRN (18:30)
[2018-07-04 19:17] VITALS: BP 108/67
[2018-07-04] MEDS: MONTELUKAST 10 MG TABLET PO SCH (21:08)
[2018-07-04] MEDS: DIPHENHYDRAMINE 25 MG CAPSULE PO PRN (21:08)
[2018-07-05 03:13] VITALS: BP 107/69
[2018-07-05 06:30] VITALS: BP 98/59
[2018-07-05] MEDS ORDERED: TERAZOSIN 1MG CAPSULE ONE (08:56)
[2018-07-05] MEDS: APIXABAN 5 MG TABLET PO SCH ×2 (09:04→21:06)
[2018-07-05] MEDS: AMIODARONE 200 MG TABLET PO SCH ×2 (09:04→21:06)
[2018-07-05 09:05] VITALS: BP 108/62
[2018-07-05] MEDS: TERAZOSIN 5MG CAPSULE PO SCH (09:05)
[2018-07-05] MEDS ORDERED: AMIODARONE 150 MG in DEXTROSE 5% 100 ML IV ONE ×2 (09:30→15:30)
[2018-07-05] MEDS ORDERED: SODIUM CHLORIDE 0.9% 1,000 ML IV SCH (09:30)
[2018-07-05] MEDS: FILTER 0.22 MICRON FOR AMIODARONE IV PRN ×2 (09:57→16:06)
[2018-07-05 12:06] VITALS: BP 99/58
[2018-07-05 20:01] VITALS: BP 124/73
[2018-07-05] MEDS: DIPHENHYDRAMINE 25 MG CAPSULE PO PRN (21:06)
[2018-07-05] MEDS: MONTELUKAST 10 MG TABLET PO SCH (21:06)
[2018-07-06 01:10] VITALS: BP 109/64
[2018-07-06 06:45] VITALS: BP 111/63
[2018-07-06] MEDS: AMIODARONE 200 MG TABLET PO SCH ×2 (09:04→20:52)
[2018-07-06] MEDS: APIXABAN 5 MG TABLET PO SCH ×2 (09:05→20:51)
[2018-07-06] MEDS: TERAZOSIN 5MG CAPSULE PO SCH (09:06)
[2018-07-06 12:53] VITALS: BP 141/68
[2018-07-06] MEDS ORDERED: PROPOFOL 10 MG/ML, 20ML ONE (15:01)
[2018-07-06 19:52] VITALS: BP 101/63
[2018-07-06] MEDS: MONTELUKAST 10 MG TABLET PO SCH (20:51)
[2018-07-06] MEDS: DIPHENHYDRAMINE 25 MG CAPSULE PO PRN (20:52)
[2018-07-07 01:55] VITALS: BP 102/55
[2018-07-07 09:03] VITALS: BP 111/76
[2018-07-07] MEDS: APIXABAN 5 MG TABLET PO SCH (09:06)
[2018-07-07] MEDS: TERAZOSIN 5MG CAPSULE PO SCH (09:06)
[2018-07-07] MEDS: AMIODARONE 200 MG TABLET PO SCH (09:06)
[2018-07-07] MEDS ORDERED: DIGOXIN 0.25 MG/ML, 2ML IVPush ONE (10:30)
[2018-07-07] MEDS ORDERED: DIGOXIN 0.125 MG TABLET PO SCH (11:00)
[2018-07-07 14:46] VITALS: BP 111/56
[2018-07-07] MEDS ORDERED: AMIO200T42 PO (15:44)
[2018-07-07] MEDS ORDERED: CALC500T PO (15:45)
[2018-07-07] MEDS ORDERED: DIPH25CA61 PO (15:47)
== END 2018-07-07 16:07 | DRG 330 ==
LOC: ORIP 12:29 → OBSVTOIN 12:29 → INTOOBSV 12:29 → EDSTATUS 15:45 → 5SO 17:12
PROVIDERS: ADMIT Surgery; ATTEND Surgery
PROC: 0DBP4ZZ Excision of Rectum, Percutaneous Endoscopic Approach (ICD-10-PCS; 2018-06-28)
PROC: 3E0T3BZ Introduction of Anesthetic Agent into Peripheral Nerves and Plexi, Percutaneous Approach (ICD-10-PCS; 2018-06-28)
PROC: 8E0W4CZ Robotic Assisted Procedure of Trunk Region, Percutaneous Endoscopic Approach (ICD-10-PCS; 2018-06-28)
PROC: 0DBE4ZZ Excision of Large Intestine, Percutaneous Endoscopic Approach (ICD-10-PCS; principal; 2018-06-28 14:30)
DX: K57.20 Diverticulitis of large intestine with perforation and abscess without bleeding (principal); E46 Unspecified protein-calorie malnutrition; E78.5 Hyperlipidemia, unspecified; K21.9 Gastro-esophageal reflux disease without esophagitis; I48.0 Paroxysmal atrial fibrillation; E78.1 Pure hyperglyceridemia; I25.10 Atherosclerotic heart disease of native coronary artery without angina pectoris; N40.1 Benign prostatic hyperplasia with lower urinary tract symptoms; I51.3 Intracardiac thrombosis, not elsewhere classified; N39.498 Other specified urinary incontinence; J44.9 Chronic obstructive pulmonary disease, unspecified; E78.00 Pure hypercholesterolemia, unspecified; E66.01 Morbid (severe) obesity due to excess calories; Z90.49 Acquired absence of other specified parts of digestive tract; Z95.1 Presence of aortocoronary bypass graft; Z95.2 Presence of prosthetic heart valve; Z79.01 Long term (current) use of anticoagulants; Z79.899 Other long term (current) drug therapy; Z87.891 Personal history of nicotine dependence; Z82.5 Family history of asthma and other chronic lower respiratory diseases; Z82.49 Family history of ischemic heart disease and other diseases of the circulatory system; Z68.29 Body mass index [BMI] 29.0-29.9, adult
CPT/HCPCS: 36415; 80048; 82570; 85025; 86140; 86850; 86900; 87324; 88307; 93005; 93312; 93321; 93325; C1729; G0378; J0131; J0690; J1100; J1650; J2405; J2543; J2704; J2710; J3010; J3490; C1765; J0282; J0330; J1160; J1200; J2370; J3480; J7120; Q0163

== ENCOUNTER 2018-07-24 08:02 | Day surgery (SDC) | payer MEDICARE, OTHER ==
[~2018-07-24] VITALS: Ht 177.8 cm; Wt 102.3 kg
[~2018-07-24 08:02] MED LIST changes: -ACETAMINOPHEN 500 MG TABLET PO ONE; +AMIO200T42 PO; -BUPIVACAINE/PF 0.5% ONE; +CALC500T PO; +DIPH25CA61 PO; -GABAPENTIN 300 MG CAPSULE PO ONE; -INDOCYANINE GREEN 25 MG VIAL ONE
[2018-07-24 08:28] VITALS: BP 113/82
[2018-07-24] MEDS ORDERED: SODIUM CHLORIDE 0.9% 1,000 ML IV SCH (08:30)
[2018-07-24] MEDS ORDERED: Crestor PO (08:37)
[2018-07-24 08:47] LABS: BASOPHILS # (AUTO) 0.03 x10^3/uL (0-0.1); BASOPHILS % (AUTO) 1 % (0-1); EOSINOPHILS % (AUTO) 5 % (1-7); LYMPHOCYTES # (AUTO) 1.33 x10^3/uL (1-3.4); LYMPHOCYTES % (AUTO) 23 % (22-44); MD NO; MEAN CORPUSCULAR HEMOGLOBIN 31.3 pg (27.5-34.5); MEAN CORPUSCULAR HGB CONC 33.6 g/dL (33.2-36.2); MEAN CORPUSCULAR VOLUME 93.3 fL (81-97); MEAN PLATELET VOLUME 6.9 fL (7.4-10.4); MONOCYTES # (AUTO) 0.62 x10^3/uL (0.2-0.8); MONOCYTES % (AUTO) 11 % (2-9); NEUTROPHILS # (AUTO) 3.48 x10^3/uL (1.8-6.8); NEUTROPHILS % (AUTO) 61 % (42-75); PLATELET COUNT 236 x10^3/uL (130-400); RED BLOOD COUNT 4.37 x10^6/uL (4.38-5.82); RED CELL DISTRIBUTION WIDTH 14.8 % (9.4-14.8)
[2018-07-24 08:58] LABS: ANION GAP 5 mmol/L (5-15); CALCIUM 8.8 mg/dL (8.5-10.1); CHLORIDE 110 mmol/L (98-107); CREATININE 1.12 mg/dL (0.7-1.3)
[2018-07-24] MEDS ORDERED: PROPOFOL 10 MG/ML, 20ML ONE (10:14)
[2018-07-24] MEDS ORDERED: APIX5TAB PO (10:55)
[2018-07-24] MEDS ORDERED: MONT10TA6 PO (10:55)
[2018-07-24] MEDS ORDERED: DUTA0.5C PO (10:56)
[2018-07-24] MEDS ORDERED: PRIM50TA34 PO (10:57)
[2018-07-24] MEDS ORDERED: TERA5CAP3 PO (10:57)
[2018-07-24] MEDS ORDERED: ROSU5TAB PO (10:58)
[2018-07-24] MEDS ORDERED: AMIO200T42 PO (10:58)
[2018-07-24] MEDS ORDERED: CALC500T PO (10:59)
[2018-07-24] MEDS ORDERED: DIPH25CA61 PO (11:00)
== END 2018-07-24 12:51 | disposition home or self-care (01) ==
LOC: CACL 08:02
PROVIDERS: ATTEND Internal Medicine Cardiovascular Disease
DX: I48.0 Paroxysmal atrial fibrillation (principal); I35.0 Nonrheumatic aortic (valve) stenosis; J45.909 Unspecified asthma, uncomplicated; Z98.890 Other specified postprocedural states
CPT/HCPCS: 36415; 80048; 85025; 93312; 93321; 93325; J2704

== ENCOUNTER → 2018-08-23 | Outpatient (CLI) | payer MEDICARE, OTHER ==
[~2018-08-23] MED LIST changes: +Crestor PO; +OMNIPAQUE 350 MG/ML, 100ML BOTTLE ONE; +PRIM50TA34 PO; +ROSU5TAB PO
== END | disposition home or self-care (01) ==
LOC: CFH 13:05
PROVIDERS: ATTEND Surgery
DX: K44.9 Diaphragmatic hernia without obstruction or gangrene (principal); J90 Pleural effusion, not elsewhere classified; J98.11 Atelectasis; M51.37 Other intervertebral disc degeneration, lumbosacral region; N28.1 Cyst of kidney, acquired; K57.30 Diverticulosis of large intestine without perforation or abscess without bleeding
CPT/HCPCS: 74177; 82565; Q9967

== ENCOUNTER 2018-09-07 05:55 | Day surgery (SDC) | payer MEDICARE, OTHER ==
[2018-09-05 10:58] LABS: ANION GAP 7 mmol/L (5-15); CALCIUM 8.7 mg/dL (8.5-10.1); CHLORIDE 103 mmol/L (98-107)
[2018-09-05 10:59] LABS: CREATININE 1.37 mg/dL (0.7-1.3)
[2018-09-05 12:03] VITALS: BP 98/62
[~2018-09-07] VITALS: Ht 177.8 cm; Wt 95.5 kg
[~2018-09-07 05:55] MED LIST changes: +LEVA15HF4 INH; +LORA10TA75 PO; -OMNIPAQUE 350 MG/ML, 100ML BOTTLE ONE; +SULF1TAB24 PO
[2018-09-07] MEDS ORDERED: Melatonin PO (06:26)
[2018-09-07] MEDS ORDERED: SODIUM CHLORIDE 0.9% 1,000 ML IV SCH (06:30)
[2018-09-07] MEDS ORDERED: PROPOFOL 10 MG/ML, 20ML ONE (07:59)
== END 2018-09-07 10:21 | disposition home or self-care (01) ==
LOC: CACL 05:55
PROVIDERS: ATTEND Internal Medicine Cardiovascular Disease
DX: I48.0 Paroxysmal atrial fibrillation (principal); I34.0 Nonrheumatic mitral (valve) insufficiency; J45.40 Moderate persistent asthma, uncomplicated; I35.0 Nonrheumatic aortic (valve) stenosis; Z95.1 Presence of aortocoronary bypass graft
CPT/HCPCS: 36415; 71046; 80048; 92960; 93005; 93312; 93321; 93325; J2704

== ENCOUNTER 2018-09-19 11:18 | Day surgery (SDC) | payer MEDICARE, OTHER ==
[~2018-09-19] VITALS: Ht 180.3 cm; Wt 92.0 kg
[~2018-09-19 11:18] MED LIST changes: +Melatonin PO
[2018-09-19] MEDS ORDERED: DIGO125T PO (12:01)
[2018-09-19 12:52] LABS: ANION GAP 8 mmol/L (5-15); CALCIUM 8.9 mg/dL (8.5-10.1); CHLORIDE 106 mmol/L (98-107)
[2018-09-19] MEDS ORDERED: PROPOFOL 10 MG/ML, 20ML ONE (13:07)
[2018-09-19] MEDS ORDERED: SODIUM CHLORIDE FLUSH 10ML SYR IVF SCH (21:00)
== END 2018-09-19 13:45 | disposition home or self-care (01) ==
LOC: CACL 11:18
PROVIDERS: ATTEND Internal Medicine Cardiovascular Disease
DX: I48.0 Paroxysmal atrial fibrillation (principal); I10 Essential (primary) hypertension; I25.10 Atherosclerotic heart disease of native coronary artery without angina pectoris; J44.9 Chronic obstructive pulmonary disease, unspecified; Z79.01 Long term (current) use of anticoagulants; Z79.899 Other long term (current) drug therapy; Z95.1 Presence of aortocoronary bypass graft; Z95.2 Presence of prosthetic heart valve
CPT/HCPCS: 36415; 80048; 80162; 92960; J2704

== ENCOUNTER 2018-10-31 13:59 | Inpatient (IN) | payer MEDICARE, OTHER ==
[~2018-10-31] VITALS: Ht 177.8 cm; Wt 91.0 kg
[2018-11-01 09:44] VITALS: BP 131/63
== END 2018-11-01 10:25 | disposition home or self-care (01) | DRG 92 ==
LOC: ED 14:48 → EDIP 15:56 → 5SO 16:59 → DCLOUNGE 11-01 10:19
PROVIDERS: ADMIT Internal Medicine Cardiovascular Disease; ATTEND Internal Medicine Cardiovascular Disease
PROC: 5A2204Z Restoration of Cardiac Rhythm, Single (ICD-10-PCS; principal; 2018-10-31)
DX: G25.1 Drug-induced tremor (principal); N17.9 Acute kidney failure, unspecified; D68.69 Other thrombophilia; I45.89 Other specified conduction disorders; T46.2X5A Adverse effect of other antidysrhythmic drugs, initial encounter; I12.9 Hypertensive chronic kidney disease with stage 1 through stage 4 chronic kidney disease, or unspecified chronic kidney disease; I25.10 Atherosclerotic heart disease of native coronary artery without angina pectoris; G62.9 Polyneuropathy, unspecified; E78.5 Hyperlipidemia, unspecified; N40.0 Benign prostatic hyperplasia without lower urinary tract symptoms; N18.9 Chronic kidney disease, unspecified; J44.9 Chronic obstructive pulmonary disease, unspecified; I48.0 Paroxysmal atrial fibrillation; Z95.3 Presence of xenogenic heart valve; Z95.1 Presence of aortocoronary bypass graft; Z79.01 Long term (current) use of anticoagulants; Y92.89 Other specified places as the place of occurrence of the external cause
CPT/HCPCS: 36415; 71045; 80048; 81003; 82040; 84439; 84443; 84484; 85014; 85018; 85025; 93005; G0378; J7030